=== PATIENT | female | born 1945 | race Caucasian/White ===

== ENCOUNTER → 2017-09-27 | Outpatient (CLI) | payer MEDICARE, BC | END | disposition home or self-care (01) | LOC: PLD 08:11 → LAB SHORT 08:11 | DX: L57.0 Actinic keratosis (principal); L28.0 Lichen simplex chronicus | CPT/HCPCS: 88305 ==

== ENCOUNTER → 2019-04-11 | Outpatient (CLI) | payer MEDICARE, BC ==
[2019-04-12 15:12] LABS: Candida species (DNA Probe) Negative (NEGATIVE); G. vaginalis (DNA Probe) Positive (NEGATIVE); T. vaginalis (DNA Probe) Negative (NEGATIVE)
== END | disposition home or self-care (01) ==
LOC: LAB SHORT 16:32 → OLS 16:32
PROVIDERS: Nurse Practitioner Family
DX: N76.0 Acute vaginitis (principal)
CPT/HCPCS: 87480; 87510; 87660

== ENCOUNTER → 2019-04-19 | Outpatient (CLI) | payer MEDICARE, BC | END | disposition home or self-care (01) | LOC: PLD 14:06 → LAB SHORT 14:06 | DX: D22.62 Melanocytic nevi of left upper limb, including shoulder (principal) | CPT/HCPCS: 88305 ==

== ENCOUNTER → 2019-06-28 | Outpatient (CLI) | payer MEDICARE, BC ==
[2019-06-29 14:03] LABS: Stool Occult Bld Immuno 1 Negative (NEGATIVE)
== END | disposition home or self-care (01) ==
LOC: LAB 15:53 → LAB SHORT 15:53
PROVIDERS: Nurse Practitioner Family
DX: Z12.11 Encounter for screening for malignant neoplasm of colon (principal)
CPT/HCPCS: G0328

== ENCOUNTER → 2019-10-17 | Outpatient (CLI) | payer MEDICARE, BC ==
[2019-10-18 08:45] LABS: Candida species (DNA Probe) Negative (NEGATIVE); G. vaginalis (DNA Probe) Positive (NEGATIVE); T. vaginalis (DNA Probe) Negative (NEGATIVE)
== END | disposition home or self-care (01) ==
LOC: LAB 10:45 → LAB SHORT 10:45
PROVIDERS: Nurse Practitioner Family
DX: N76.0 Acute vaginitis (principal)
CPT/HCPCS: 87480; 87510; 87660

== ENCOUNTER 2020-06-02 01:53 | Emergency (ER) | payer MEDICARE, BC ==
[~2020-06-02] VITALS: Ht 167.6 cm; Wt 52.2 kg
[2020-06-02] MEDS ORDERED: PARO20 PO (02:20)
[2020-06-02 02:33] LABS: Source, Urine Clean Catch
[2020-06-02 02:41] LABS: Bilirubin, Urine Neg (Neg); Blood, Urine 5+ (Neg); Glucose Qualitative, Urine Neg (Neg); Ketones, Urine 1+ (Neg); Leukocyte Esterase, Urine 3+ (Neg); Nitrite, Urine Neg (Neg); Protein, Urine 4+ (Neg); Urobilinogen, Urine NORM (Normal)
[2020-06-02 02:53] LABS: Appearance, Urine Turbid (Clear); Color, Urine Yellow (P-Yellow)
[2020-06-02 02:59] LABS: Bacteria Many /hpf; Squamous Epithelial Cells Rare /hpf (Few); White Blood Cells, Urine TNTC /hpf (0-5)
[2020-06-02] MEDS ORDERED: CEPH500 PO (03:22)
[2020-06-02] MEDS ORDERED: Pyridium200 MG PO (03:22)
== END 2020-06-02 03:40 | disposition home or self-care (01) ==
LOC: ER 01:53
PROVIDERS: Emergency Medicine
DX: N30.00 Acute cystitis without hematuria (principal); Z79.899 Other long term (current) drug therapy
CPT/HCPCS: 81001; 87086; 99283; A9270-GY

== ENCOUNTER → 2020-11-05 | Outpatient (CLI) | payer MEDICARE, BC ==
[~2020-11-05] MED LIST: CEPH500 PO; PARO20 PO; Pyridium200 MG PO
[2020-11-05 14:23] LABS: Source, Urine Voided
[2020-11-05 16:03] LABS: Appearance, Urine Clear (Clear); Bilirubin, Urine Neg (Neg); Blood, Urine 3+ (Neg); Color, Urine Yellow (P-Yellow); Glucose Qualitative, Urine Neg (Neg); Ketones, Urine Neg (Neg); Leukocyte Esterase, Urine 1+ (Neg); Nitrite, Urine Neg (Neg); Protein, Urine Neg (Neg); Urobilinogen, Urine NORM (Normal); pH, Urine 6.5 (5.0-8.0)
[2020-11-05 16:23] LABS: Bacteria Many /hpf; Squamous Epithelial Cells Rare /hpf (Few)
== END | disposition home or self-care (01) ==
LOC: LAB 14:20 → LAB SHORT 14:20
PROVIDERS: Student in an Organized Health Care Education/Training Program
DX: N18.31 Chronic kidney disease, stage 3a (principal)
CPT/HCPCS: 81001; 87077; 87086; 87186

== ENCOUNTER → 2020-11-22 | Outpatient (CLI) | payer MEDICARE, BC ==
[2020-11-22 16:40] LABS: Candida species (DNA Probe) Negative (NEGATIVE); G. vaginalis (DNA Probe) Positive (NEGATIVE); T. vaginalis (DNA Probe) Negative (NEGATIVE)
== END | disposition home or self-care (01) ==
LOC: LAB 14:55 → LAB SHORT 14:55
PROVIDERS: Family Medicine
DX: N76.1 Subacute and chronic vaginitis (principal)
CPT/HCPCS: 87480; 87510; 87660

== ENCOUNTER → 2020-12-18 | Outpatient (CLI) | payer MEDICARE, BC ==
[2020-12-18 11:52] LABS: Source, Urine Clean Catch
[2020-12-18 13:51] LABS: Appearance, Urine Clear (Clear); Bilirubin, Urine Neg (Neg); Blood, Urine 2+ (Neg); Color, Urine Yellow (P-Yellow); Glucose Qualitative, Urine Neg (Neg); Ketones, Urine Neg (Neg); Leukocyte Esterase, Urine Neg (Neg); Nitrite, Urine Neg (Neg); Protein, Urine Neg (Neg); Urobilinogen, Urine NORM (Normal)
[2020-12-18 14:10] LABS: Candida species (DNA Probe) Positive (NEGATIVE); G. vaginalis (DNA Probe) Positive (NEGATIVE); T. vaginalis (DNA Probe) Negative (NEGATIVE)
[2020-12-18 14:39] LABS: Bacteria Few /hpf; Red Blood Cells, Urine 0-2 /hpf (0-2); Squamous Epithelial Cells Few /hpf (Few); Transitional Epithelial Cells Rare /hpf (0-Rare); White Blood Cells, Urine Rare /hpf (0-5)
== END | disposition home or self-care (01) ==
LOC: LAB SHORT 07:50 → LAB 07:50
PROVIDERS: Student in an Organized Health Care Education/Training Program
DX: N89.8 Other specified noninflammatory disorders of vagina (principal); R30.0 Dysuria
CPT/HCPCS: 81001; 87480; 87510; 87660

== ENCOUNTER → 2021-01-29 | Outpatient (CLI) | payer MEDICARE, BC ==
[2021-01-29 14:20] LABS: Candida species (DNA Probe) Positive (NEGATIVE); G. vaginalis (DNA Probe) Positive (NEGATIVE); T. vaginalis (DNA Probe) Negative (NEGATIVE)
== END | disposition home or self-care (01) ==
LOC: LAB SHORT 07:57 → LAB 07:57
PROVIDERS: Student in an Organized Health Care Education/Training Program
DX: N89.8 Other specified noninflammatory disorders of vagina (principal)
CPT/HCPCS: 87480; 87510; 87660

== ENCOUNTER → 2021-02-24 | Outpatient (CLI) | payer MEDICARE, BC ==
[2021-02-25 10:02] LABS: Candida species (DNA Probe) Positive (NEGATIVE); G. vaginalis (DNA Probe) Positive (NEGATIVE); T. vaginalis (DNA Probe) Negative (NEGATIVE)
== END | disposition home or self-care (01) ==
LOC: LAB 14:20 → LAB SHORT 14:20
PROVIDERS: Student in an Organized Health Care Education/Training Program
DX: N76.0 Acute vaginitis (principal)
CPT/HCPCS: 87480; 87510; 87660

== ENCOUNTER → 2021-03-17 | Outpatient (CLI) | payer MEDICARE, BC | END | disposition home or self-care (01) | LOC: LAB SHORT 14:48 | DX: C44.722 Squamous cell carcinoma of skin of right lower limb, including hip (principal) | CPT/HCPCS: 88305 ==

== ENCOUNTER → 2021-06-09 | Outpatient (CLI) | payer MEDICARE, BC | END | disposition home or self-care (01) | LOC: LAB SHORT 08:05 → PLD 08:05 | DX: C76.52 Malignant neoplasm of left lower limb (principal) | CPT/HCPCS: 88305 ==

== ENCOUNTER → 2021-09-15 | Outpatient (CLI) | payer MEDICARE, BC ==
[2021-09-15 14:44] LABS: Candida species (DNA Probe) Negative (NEGATIVE); G. vaginalis (DNA Probe) Positive (NEGATIVE); T. vaginalis (DNA Probe) Negative (NEGATIVE)
== END ==
LOC: LAB 10:30 → LAB SHORT 10:30
PROVIDERS: Emergency Medicine
DX: R35.0 Frequency of micturition (principal); R10.2 Pelvic and perineal pain
CPT/HCPCS: 87077; 87086; 87186; 87480; 87510; 87660

== ENCOUNTER → 2022-04-06 | Outpatient (CLI) | payer MEDICARE, BC | END | disposition home or self-care (01) | LOC: LAB 09:35 → LAB SHORT 09:35 | DX: L57.0 Actinic keratosis (principal) | CPT/HCPCS: 88305 ==

== ENCOUNTER 2023-03-04 20:13 | Emergency (ER) | payer MEDICARE, BC ==
[~2023-03-04] VITALS: Ht 165.1 cm; Wt 54.4 kg
[2023-03-04 20:31] VITALS: BP 155/70
[2023-03-04] MEDS ORDERED: AMOCLA875 PO (20:58)
== END 2023-03-04 21:12 | disposition home or self-care (01) ==
LOC: ER 20:13
DX: S51.852A Open bite of left forearm, initial encounter (principal); W55.01XA Bitten by cat, initial encounter; Z79.899 Other long term (current) drug therapy; Z87.891 Personal history of nicotine dependence
CPT/HCPCS: 90471; 90715; 99282-25; A9270

== ENCOUNTER → 2023-04-18 | Outpatient (CLI) | payer MEDICARE, BC ==
[~2023-04-18] MED LIST changes: +AMOCLA875 PO
== END ==
LOC: PLD 12:07 → LAB SHORT 12:07
DX: L57.0 Actinic keratosis (principal)
CPT/HCPCS: 88305; 88312

== ENCOUNTER 2024-07-31 07:21 | Day surgery (SDC) | payer MEDICARE, BC ==
[~2024-07-31] VITALS: Ht 167.6 cm; Wt 57.2 kg
[~2024-07-31 07:21] MED LIST changes: +Balanced Salt Epinephrine Irrigation Solution 500 mL IR SCH; +Diazepam 2 MG Tab PO PRN; +Lidocaine HCl/Pf 1% 5 ML VIAL XX SCH; +Moxifloxacin HCL 0.5 MG/0.1 ML 0.4MLSYR LEFTEYE SCH; +Ondansetron 4 MG SoluTab MM PRN; +PHENYLEPHRINE\\TROPICAMIDE\\TETRACAINE OPHTHALMIC DILATING SOLN LEFTEYE PRN; +Povidone-Iodine 450 DROP/30 ML Solution LEFTEYE SCH; +Povidone-Iodine 450 DROP/30 ML Solution ONE; +Robaxin750 MG PO; +Tetracaine HCl/Pf 0.5% Opth Soln 4 ml ONE; +diazePAM 5 MG,diazePAM 2 MG PO SCH
[2024-07-31] MEDS ORDERED: Diazepam 10 MG Tab ONE (08:01)
[2024-07-31] MEDS ORDERED: DESVENLAFAXINE50 MG PO (08:15)
--- NOTE | 2024-07-31 08:31 | NUR ---
07/31/24 0831 Vero Pedersen UPON ARRIVAL PT RATED ANXIETY 3/10. PT NOW RATES ANXIETY 2/10
[2024-07-31 09:11] VITALS: BP 114/63
== END 2024-07-31 09:34 | disposition home or self-care (01) ==
LOC: ORSCSDS 07:21
PROVIDERS: Student in an Organized Health Care Education/Training Program
PROC: 08RK3JZ Replacement of Left Lens with Synthetic Substitute, Percutaneous Approach (ICD-10-PCS; principal; 2024-07-31 09:00)
DX: H25.812 Combined forms of age-related cataract, left eye (principal); H35.3132 Nonexudative age-related macular degeneration, bilateral, intermediate dry stage; Z79.899 Other long term (current) drug therapy
CPT/HCPCS: A9270; V2632

== ENCOUNTER 2024-08-08 10:54 | Day surgery (SDC) | payer MEDICARE, BC ==
[~2024-08-08] VITALS: Ht 167.6 cm; Wt 56.5 kg
[~2024-08-08 10:54] MED LIST changes: +DESVENLAFAXINE50 MG PO; -Diazepam 2 MG Tab PO PRN; +Diazepam 5 MG Tab PO PRN; +Diazepam 5 MG Tab PO SCH; -Moxifloxacin HCL 0.5 MG/0.1 ML 0.4MLSYR LEFTEYE SCH; +Moxifloxacin HCL 0.5 MG/0.1 ML 0.4MLSYR RIGHTEYE SCH; -PHENYLEPHRINE\\TROPICAMIDE\\TETRACAINE OPHTHALMIC DILATING SOLN LEFTEYE PRN; +PHENYLEPHRINE\\TROPICAMIDE\\TETRACAINE OPHTHALMIC DILATING SOLN RIGHTEYE PRN; -Povidone-Iodine 450 DROP/30 ML Solution LEFTEYE SCH; +Povidone-Iodine 450 DROP/30 ML Solution RIGHTEYE SCH; -diazePAM 5 MG,diazePAM 2 MG PO SCH
[2024-08-08] MEDS ORDERED: Diazepam 10 MG Tab ONE (11:11)
[2024-08-08] MEDS ORDERED: Midazolam HCl 1MG / ML 2ML Vial ONE (11:46)
[2024-08-08] MEDS ORDERED: FentaNYL Citrate 50 MCG/ML 2 ML Injection ONE (11:46)
[2024-08-08 12:14] VITALS: BP 112/68
== END 2024-08-08 12:31 | disposition home or self-care (01) ==
LOC: ORSCSDS 10:54
PROVIDERS: Student in an Organized Health Care Education/Training Program
PROC: 08RJ3JZ Replacement of Right Lens with Synthetic Substitute, Percutaneous Approach (ICD-10-PCS; principal; 2024-08-08 12:30)
DX: H25.811 Combined forms of age-related cataract, right eye (principal); Z96.1 Presence of intraocular lens; H35.3132 Nonexudative age-related macular degeneration, bilateral, intermediate dry stage; F32.A Depression, unspecified; Z79.899 Other long term (current) drug therapy
CPT/HCPCS: A9270; J2250; J3010; V2632